=== PATIENT | male | born 1970 | race African-American/Black ===

== ENCOUNTER 2017-10-07 21:01 | Emergency (ER) | payer OTHER ==
[2017-10-07 21:25] VITALS: BP 134/90
[2017-10-07] MEDS ORDERED: PROPARACAINE 0.5% OPHTH DROPS 15 ML EACHEYE STA (21:26)
[2017-10-07] MEDS ORDERED: levoFLOXacin 0.5% OPHTH DROPS 5 ML RIGHTEYE STA (21:49)
[2017-10-07] MEDS ORDERED: HYDROcod/ACET 5/325 Prepack 4 PO STA (21:49)
--- NOTE | 2017-10-07 21:52 | ED Physician Documentation ---
PD HPI OPHTHO - Stated complaint Stated Complaint: RT EYE PX - Chief complaint Chief Complaint: Heent - History obtained from History obtained from: Patient - History of Present Illness Timing - onset: Other (Few days ago work he felt he got something stuck in his eye. He is not sure what. Maybe a piece of fiberglass or metal. He has blurry vision and a sensation of foreign body in the right eye. He does not wear contacts.) Review of Systems Constitutional: denies: Fever, Chills Eyes: reports: Loss of vision, Decreased vision, Discharge, Irritation Ears: denies: Loss of hearing, Ear pain Nose: denies: Rhinorrhea / runny nose, Congestion PD PAST MEDICAL HISTORY - Past Medical History Past Medical History: No - Past Surgical History Past Surgical History: No - Present Medications Home Medications: Ambulatory Orders Medication Instructions Recorded Confirmed No Known Home Medications [No 10/07/17 10/07/17 Known Home Medications] - Allergies Allergies/Adverse Reactions: Allergies Allergy/AdvReac Type Severity Reaction Status Date / Time No Known Drug Allergies Allergy Verified 10/07/17 21:44 - Social History Does the pt smoke?: No Smoking Status: Never smoker Does the pt drink ETOH?: No Does the pt have substance abuse?: No - Immunizations Immunizations are current?: Yes - POLST Patient has POLST: No PD ED PE NORMAL - Vitals Vital signs reviewed: Yes - General General: Alert and oriented X 3, No acute distress - HEENT HEENT: PERRL, EOMI, Other (He has multiple areas of flourescein uptake, there is a large ulcer medially and then a small one with some scattered areas anteriorly and laterally. 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 - Sepsis Event Vital Signs: Vital Signs - 24 hr 10/07/17 21:22 Temperature 36.4 C L Heart Rate 76 Respiratory 15 Rate Blood Pressure 134/90 H O2 Saturation 98 Oxygen O2 Source Room air Departure - Departure Disposition: 01 Home, Self Care Clinical Impression: Corneal ulcer of right eye Condition: Good Record reviewed to determine appropriate education?: Yes Instructions: ED Ulcer Cornea Follow-Up: Apolinar Howard MD [Provider Admit Priv/Credential] - Tomorrow Comments: USE THE EYE DROP EVERY 2 HOURS UNTIL YOU FOLLOWUP. FOLLOWUP TOMORROW DISCUSSED. Call Dr. Howard's office in the morning. Forms: Activity restrictions Discharge Date/Time: 10/07/17 22:18
== END 2017-10-07 22:18 | disposition home or self-care (01) ==
LOC: ED 21:01
DX: H16.001 Unspecified corneal ulcer, right eye (principal)
CPT/HCPCS: 99283; A9270; J3490